=== PATIENT | male | born 1945 | race Caucasian/White ===

== ENCOUNTER 2023-07-01 06:11 | Observation (INO) | payer OTHER, SELFPAY ==
--- NOTE | 2023-07-01 07:08 | RAD REPORT ---
EXAM DESCRIPTION: Jovon Single View07/01/2023 6:49 am CLINICAL HISTORY: Chest pain COMPARISON: none FINDINGS: Mild bilateral interstitial lung opacities presumably chronic. The lungs appear clear of acute infiltrate. The heart is borderline enlarged
[2023-07-01 07:24] LABS: SARS-CoV-2 Antigen Rapid Res Negative (Negative)
--- NOTE | 2023-07-01 07:49 | RAD REPORT ---
EXAM DESCRIPTION: USExtremity Venous Uni Ltd07/01/2023 7:32 am CLINICAL HISTORY: left leg pain COMPARISON: None FINDINGS: Left common femoral, superficial femoral, greater saphenous, popliteal and posterior tibi al veins are compressible and demonstrate augmentation. Doppler demonstrates good flow. Grayscale, color and spectral analysis performed on all vessels IMPRESSION: No evidence of deep venous thrombosis involving the left lower extremity.
--- NOTE | 2023-07-01 07:50 | RAD REPORT ---
EXAM DESCRIPTION: US - Lower Extremity Artery Uni Ltd - 07/01/2023 7:32 am CLINICAL HISTORY: Leg pain COMPARISON: None FINDINGS: The right common femoral, superficial femoral ,popliteal arteries, right posterior tibial and dorsali s pedis arterial waveforms are biphasic and triphasic. No significant stenosis visualized Grayscale, color and spectral analysis performed on all vessels IMPRESSION: No significant abnormality is displayed
[2023-07-01 08:01] LABS: Specific Gravity 1.023 (1.005-1.030); Urine Bacteria None Seen /HPF (<20); Urine Bilirubin NEGATIVE (Negative); Urine Blood Negative (Negative); Urine Clarity Clear (Clear); Urine Color Yellow (Yellow); Urine Glucose NEGATIVE (Negative); Urine Mucus Slight /HPF (None Seen); Urine Protein 1+ (Negative); Urine RBC None Seen /HPF (None Seen); Urine Urobilinogen Normal (Normal); Urine pH 5.5 (5.0-7.0)
[2023-07-01 10:00] LABS: Absolute Lymphocytes (CBC) 0.9 K/uL (0.7-4.9); Hematocrit 42.9 % (39.6-49.0); Lymphocytes % 5.8 % (15.3-44.8); MCV 106.9 fL (80-100); MPV 7.3 fL (7.6-11.3); Platelets 267 thou/uL (152-406); RBC Red Blood Cell Count 4.01 M/uL (4.33-5.43)
[2023-07-01 10:14] LABS: Protime INR 1.69
[2023-07-01 10:17] LABS: Bilirubin Total 0.6 mg/dL (0.2-1.0); Potassium 3.9 mEq/L (3.5-5.1); Protein, Total 7.5 g/dL (6.4-8.2)
[2023-07-01 10:26] LABS: Blood Morphology Comment NOTED (NOT SEEN); Macrocytosis 1+; Platelet Estimate ADEQ; White Blood Cell Scan OK (OK)
--- NOTE | 2023-07-01 10:41 | EDPHYS ---
Physician Documentation [facility] Name: Elías Eason Age: 77 yrs Sex: Male : 1945 Arrival Date: 07/01/2023 Time: 06:11 Bed 17 Private MD: ED Physician Duane Brewster HPI: 07/01 06:45 This 77 yrs old Male presents to ER via EMS with complaints of weakness. rn 06:45 Patient reports feeling generalized weakness and malaise for the last 2 or 3 days. rn States began having a "cold "on his way here, was slow to unload his vehicle when got to [facility], took 2 days to unload, and does not feel any better. Denies any chest pain or shortness of breath. Denies abdominal pain/vomiting/diarrhea.. Onset: The symptoms/episode began/occurred 3 day(s) ago. Severity of symptoms: At their worst the symptoms were moderate in the emergency department the symptoms are unchanged. The patient has not experienced similar symptoms in the past. The patient has not recently seen a physician. Historical: - Allergies: 06:28 Arixtra; nw1 06:28 Zylet; nw1 06:28 Doxycycline; nw1 - Home Meds: 06:28 Eliquis 5 mg oral tablet [Active]; levothyroxine 88 mcg capsule [Active]; vitamin B nw1 complex oral capsule [Active]; Nicotinamide (with chromium) oral [Active]; amoxicillin-pot clavulanate 875-125 mg Oral tablet [Active]; - Immunization history:: Adult Immunizations up to date, Client reports receiving the 2nd dose of the Covid vaccine, Last tetanus immunization: up to date Pneumococcal vaccine is up to date, Flu vaccine is up to date. - Social history:: Smoking status: Patient denies any tobacco usage or history of. Patient uses alcohol, on a daily basis. - Family history:: not pertinent. - Hospitalizations: : No recent hospitalization is reported. 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 ENT: Dry mucous membranes Cardiovascular: Regular rate and rhythm. No pulse deficits. Respiratory: No increased work of breathing, no retractions or nasal flaring. Abdomen/GI: Soft, non-tender MS/ Extremity: No cyanosis. Left lower extremity with chronic venous stasis or lymphedema changes with open wound in her left distal leg. More proximally however there is increased redness with warmth and lymphangitic streaking proximally past the knee and mid thigh. Neuro: Awake and alert, GCS 15, oriented to person, place, time, and situation. Cranial nerves II-XII grossly intact. Motor strength 4/5 in all extremities. Sensory grossly intact 08:06 ECG was reviewed by the Attending Physician. rt Vital Signs: 06:25 BP 154 / 70; Pulse 88; Resp 19; Temp 98.5(O); Pulse Ox 94% on R/A; Weight 70.31 kg; nw1 Height 5 ft. 8 in. ; 06:28 BP 154 / 70; Pulse 88; Temp 98.5(O); Pulse Ox 94% on R/A; Weight 70.31 kg; Height 5 ft. nw1 8 in. ; Pain 0/10; 09:00 BP 150 / 83; Pulse 93; Resp 16; Pulse Ox 95% ; ko1 06:28 Body Mass Index 23.57 (70.31 kg, 172.72 cm) nw1 06:28 Pain Scale: Adult nw1 Frantz Coma Score: 06:38 Eye Response: spontaneous(4). Motor Response: obeys commands(6). Verbal Response: nw1 oriented(5). Total: 15. MDM: 06:19 Patient medically screened. rn 10:41 Differential Diagnosis Cellulitis, DVT,. Data reviewed: vital signs, nurses notes, lab rt test result(s), EKG, radiologic studies. Consideration of Admission/Observation Patient was admitted/placed on observation. Management of patient was discussed with the following: Hospitalist: Agrees to admit. I considered the following discharge prescriptions or medication management in the emergency department Medications were administered in the Emergency Department. See MAR. Test considered but Not performed: CT: Do not suspect necrotizing infection, CT scan not indicated. Counseling: I had a detailed discussion with the patient and/or guardian regarding the historical points, exam findings, and any diagnostic results supporting the discharge/admit diagnosis, lab results, radiology results, the need for further work-up and treatment in the hospital. ED course: Patient did not initially meet SIRS criteria upon arrival, heart rate became above 90 at 9 AM, second SIRS criteria with leukocytosis, at that time, IV antibiotics, fluids were started.. 07/01 06:30 Order name: Blood Culture Adult (2) rn 07/01 06:30 Order name: CBC with Diff; Complete Time: 10:27 07/01 06:30 Order name: CMP; Complete Time: 10: 07/01 06:30 Order name: Lactate w/ 2H reflex if indic.; Complete Time: 07:51 07/01 06:30 Order name: Protime (+inr); Complete Time: 10:27 07/01 06:30 Order name: Ptt, Activated; Complete Time: 10:27 07/01 06:30 Order name: Urinalysis w/ reflexes; Complete Time: 08:04 rn 07/01 06:30 Order name: Flu; Complete Time: 07:51 rn 07/01 06:30 Order name: SARS RAPID; Complete Time: 07:51 07/01 10:07 Order name: Manual Differential; Complete Time: 10:27 [facility] 07/01 10:07 Order name: CBC Smear Scan; Complete Time: 10:27 [facility] 07/01 12:05 Order name: Wound Culture [facility] 07/01 12:10 Order name: Magnesium EDPA 07/01 12:10 Order name: NT PRO-BNP [facility] 07/01 12:10 Order name: Phosphorus EDPA 07/01 12:10 Order name: T4 Free EDPA 07/01 12:10 Order name: Thyroid Stimulating Hormone [facility] 07/01 12:10 Order name: Urinalysis w/ reflexes EDPA 07/01 12:11 Order name: Basic Metabolic Panel [facility] 07/01 12:11 Order name: Basic Metabolic Panel [facility] 07/01 12:11 Order name: Basic Metabolic Panel [facility] 07/01 12:11 Order name: Basic Metabolic Panel [facility] 07/01 12:11 Order name: CBC with Automated Diff [facility] 07/01 12:11 Order name: CBC with Automated Diff EDMS 07/01 12:11 Order name: CBC with Automated Diff EDMS 07/01 12:11 Order name: CBC with Automated Diff EDMS 07/01 12:12 Order name: Hemoglobin A1c EDMS 07/01 12:12 Order name: Lipid Profile EDMS 07/01 06:30 Order name: Chest Single View XRAY; Complete Time: 07:51 rn 07/01 06:30 Order name: Extremity Venous Uni Ltd US; Complete Time: 07:51 rn 07/01 06:30 Order name: Lower Extremity Artery Uni Ltd US; Complete Time: 07:51 rn 07/01 12:15 Order name: Lower Extremity Wo; Complete Time: 16:35 EDMS 07/01 06:30 Order name: EKG; Complete Time: 06:31 rn 07/01 12:10 Order name: [facility] Cons EDPA 07/01 06:30 Order name: Accucheck; Complete Time: 09:55 rn 07/01 06:30 Order name: Cardiac monitoring; Complete Time: 06:41 rn 07/01 06:30 Order name: EKG - Nurse/Tech; Complete Time: 08:56 rn 07/01 06:30 Order name: IV Saline Lock - Large Bore; Complete Time: 07:13 rn 07/01 06:30 Order name: Labs collected and sent; Complete Time: 07:13 rn 07/01 06:30 Order name: O2 Per Protocol; Complete Time: 06:41 rn 07/01 06:30 Order name: O2 Sat Monitoring; Complete Time: 06:41 rn 07/01 06:30 Order name: Vital Signs; Complete Time: 06:41 rn 07/01 07:14 Order name: Labs - recollect needed: recollect green,blue and lavender top; Complete bd Time: 09:55 EC:06 Rate is 92 beats/min. Rhythm is regular, Normal Sinus Rhythm with No ectopy. QRS [place] rt is Normal. AL interval is normal. QRS interval is normal. QT interval is normal. Clinical impression: NSR w/ Non-specific ST/T Changes. Administered Medications: 11:22 Drug: Cefepime IVPB 2 grams IVPB at 200 ml/hr once over 30 mins; (mix in NS 100 mL) ko1 Route: IVPB; Rate: 200 ml/hr; Infused Over: 30 mins; Site: right forearm; 11:22 Drug: NS 0.9% IV 1000 ml IV at 1 bolus Per protocol; 1000 mL bolus Route: IV; Rate: 1 ko1 bolus; Site: right forearm; 11:55 Drug: Triamcinolone Topical Cream (0.5 %) 1 application Topical once Route: Topical; ko1 Site: affected area; 11:55 Drug: vancoMYCIN IVPB 1 grams IVPB once over 2 hrs Route: IVPB; Infused Over: 2 hrs; ko1 Site: right forearm; Disposition Summary: 07/01/23 10:41 Hospitalization Ordered Notes: Hospitalization Status: Inpatient Admission rt Provider: Yonas Castañeda rt Condition: Stable rt Problem: an ongoing problem rt Symptoms: are unchanged rt Bed/Room Type: Standard rt Location: Telemetry/MedSurg (Inpatient)(07/01/23 16:45) bd Room Assignment: [facility](07/01/23 16:45) bd Diagnosis - Cellulitis left lower extremity rt - Sepsis rt Forms: - Medication Reconciliation Form rt - SBAR form rt - Leadership Thank You Letter rt Signatures: Dispatcher [employer] EDConcepcion Monterroso bd Geronimo Storey MD MD rn Bradberry, Kelly RN RN kb3 Dipti Dean, NATALIE RN ko1 Duane Brewster MD MD rt Karla López RN RN nw1 Corrections: (The following items were deleted from the chart) 13:42 10:41 Telemetry/MedSurg (Inpatient) rt kb3 13:42 10:41 rt kb3 16:45 13:42 [facility] ER HOLD kb3 bd 16:45 13:42 ERHOLD- kb3 bd
--- NOTE | 2023-07-01 10:41 | ER ---
Nurse's Notes [facility] Name: Elías Eason Age: 77 yrs Sex: Male : 1945 Arrival Date: 07/01/2023 Time: 06:11 Bed 17 Private MD: Diagnosis: Cellulitis left lower extremity;Sepsis Presentation: 07/01 06:25 Chief complaint: Patient states: Generalized weakness and fatigue. Pt states being nw1 treated by wound care clinic for LLE in [place] three times a day. Pt states skin cancer on LLE. Coronavirus screen: Vaccine status: Patient reports receiving the 2nd dose of the covid vaccine. Client denies travel out of the [place] in the last 14 days. At this time, the client does not indicate any symptoms associated with coronavirus-19. Ebola Screen: Patient negative for fever greater than or equal to 101.5 degrees Fahrenheit, and additional compatible Ebola Virus Disease symptoms Patient denies exposure to infectious person. Patient denies travel to an Ebola-affected area in the 21 days before illness onset. No symptoms or risks identified at this time. Initial Sepsis Screen: Does the patient meet any 2 criteria? No. Patient's initial sepsis screen is negative. Does the patient have a suspected source of infection? Yes: Skin breakdown/wound. Risk Assessment: Do you want to hurt yourself or someone else? Patient reports no desire to harm self or others. Onset of symptoms was June 28, 2023. 06:25 Method Of Arrival: EMS nw1 06:25 Acuity: HARRISON 2 nw1 Triage Assessment: 06:28 General: Appears in no apparent distress. comfortable, well groomed, well developed, nw1 well nourished, Behavior is calm, cooperative, appropriate for age. Pain: Denies pain. EENT: No deficits noted. No signs and/or symptoms were reported regarding the EENT system. Neuro: Level of Consciousness is awake, alert, obeys commands, Oriented to person, place, time, situation, Appropriate for age. Cardiovascular: Reports None. Respiratory: No deficits noted. Airway is patent Trachea midline Respiratory effort is even, unlabored, Respiratory pattern is regular, symmetrical. GI: No deficits noted. No signs and/or symptoms were reported involving the gastrointestinal system. Abdomen is non-distended, Bowel sounds present X 4 quads. Abd is soft and non tender X 4 quads. : No deficits noted. No signs and/or symptoms were reported regarding the genitourinary system. Derm: Skin LLE wounds/treated by wound care in [place], [place]. Musculoskeletal: Reports weakness in generalized. Historical: - Allergies: 06:28 Arixtra; nw1 06:28 Zylet; nw1 06:28 Doxycycline; nw1 - Home Meds: :28 Eliquis 5 mg oral tablet [Active]; levothyroxine 88 mcg capsule [Active]; vitamin B nw1 complex oral capsule [Active]; Nicotinamide (with chromium) oral [Active]; amoxicillin-pot clavulanate 875-125 mg Oral tablet [Active]; - Immunization history:: Adult Immunizations up to date, Client reports receiving the 2nd dose of the Covid vaccine, Last tetanus immunization: up to date Pneumococcal vaccine is up to date, Flu vaccine is up to date. - Social history:: Smoking status: Patient denies any tobacco usage or history of. Patient uses alcohol, on a daily basis. - Family history:: not pertinent. - Hospitalizations: : No recent hospitalization is reported. Screenin:38 [facility] ED Fall Risk Assessment (Adult) History of falling in the last 3 months, nw1 including since admission Yes- single mechanical fall (1 pt) Confusion or Disorientation No (0 pts) Intoxicated or Sedated No (0 pts) Impaired Gait Yes (1 pt) Mobility Assist Device Used Yes (1 pt) Altered Elimination No (0 pt) Score/Fall Risk Level 3 or more points = High Risk Oriented to surroundings, Maintained a safe environment, Educated pt \T\ family on fall prevention, incl call for assistance when getting out of bed, Assessed \T\ reinforced patient's understanding of fall precautions, Provided non-skid footwear, Hourly rounding (assess needs \T\ fall precautionary measures) done, Used ambulatory aids as needed (educated on \T\ assisted with). Abuse screen: Denies threats or abuse. Denies injuries from another. Nutritional screening: No deficits noted. Tuberculosis screening: No symptoms or risk factors identified. Assessment: 06:38 Reassessment: See triage assessment. nw1 08:45 Reassessment: called lab for redraw, offgoing nurse had sent blood twice. ko1 17:15 Reassessment: attempted to call report, left message on phone and attempted to call [facility] nurses station at 1224 and no answer. Vital Signs: 06:25 BP 154 / 70; Pulse 88; Resp 19; Temp 98.5(O); Pulse Ox 94% on R/A; Weight 70.31 kg; nw1 Height 5 ft. 8 in. ; 06:28 BP 154 / 70; Pulse 88; Temp 98.5(O); Pulse Ox 94% on R/A; Weight 70.31 kg; Height 5 ft. nw1 8 in. ; Pain 0/10; 09:00 BP 150 / 83; Pulse 93; Resp 16; Pulse Ox 95% ; ko1 06:28 Body Mass Index 23.57 (70.31 kg, 172.72 cm) nw1 06:28 Pain Scale: Adult nw1 Gallup Coma Score: 06:38 Eye Response: spontaneous(4). Motor Response: obeys commands(6). Verbal Response: nw1 oriented(5). Total: 15. ED Course: 06:15 Patient arrived in ED. la4 06:19 Geronimo Storey MD is Attending Physician. rn 06:24 Karla López, NATALIE is Primary Nurse. nw1 06:28 Triage completed. nw1 06:28 Arm band placed on right wrist. Labs ordered per protocol. Drawn by ED staff. noted 2 nw1 wounds on LLE with band-aid. Noted redness to extremity as well as warm to touch. 06:38 Patient has correct armband on for positive identification. Bed in low position. Call nw1 light in reach. Side rails up X2. Adult w/ patient. Provided Education on: POC. Client placed on continuous cardiac and pulse oximetry monitoring. NIBP monitoring applied. groundwater monitoring technician on. Pulse ox on. NIBP on. Door closed. Noise minimized. Warm blanket given. Pillow given. 06:38 No provider procedures requiring assistance completed. Inserted saline lock: 20 gauge nw1 in right forearm, using aseptic technique. Blood collected. Missed attempt(s): 20 gauge in right forearm. Bleeding controlled, band aid applied, catheter tip intact. 06:50 Chest Single View XRAY In Process Unspecified. EDMS 06:58 Attending Physician role handed off by Geronimo Storey MD rt 06:58 Duane Brewster MD is Attending Physician. rt 07:34 Extremity Venous Uni Ltd US In Process Unspecified. EDMS 07:34 Lower Extremity Artery Uni Ltd US In Process Unspecified. EDMS 10:39 Yonas Castañeda MD is Hospitalizing Provider. rt 13:49 Primary Nurse role handed off by Karla López, NATALIE ko1 13:49 Dipti Dean, RN is Primary Nurse. ko1 16:58 Patient admitted, IV remains in place. ko1 Administered Medications: 11:22 Drug: Cefepime IVPB 2 grams IVPB at 200 ml/hr once over 30 mins; (mix in NS 100 mL) ko1 Route: IVPB; Rate: 200 ml/hr; Infused Over: 30 mins; Site: right forearm; 11:22 Drug: NS 0.9% IV 1000 ml IV at 1 bolus Per protocol; 1000 mL bolus Route: IV; Rate: 1 ko1 bolus; Site: right forearm; 11:55 Drug: Triamcinolone Topical Cream (0.5 %) 1 application Topical once Route: Topical; ko1 Site: affected area; 11:55 Drug: vancoMYCIN IVPB 1 grams IVPB once over 2 hrs Route: IVPB; Infused Over: 2 hrs; ko1 Site: right forearm; Medication: 06:38 VIS not applicable for this client. nw1 Outcome: 10:41 Decision to Hospitalize by Provider. rt 16:58 Admitted to Tele accompanied by tech, via wheelchair, room 210, ko1 16:58 Condition: stable 16:58 Instructed on the need for admit, 17:52 Patient left the ED. ko1 Signatures: Dispatcher [employer] EDMS Geronimo Storey MD MD rn Oliver, Kathy RN RN ko1 Duane Brewster MD MD rt Denzel Marx RN RN la4 Karla López, RN RN nw1
[2023-07-01] MEDS ORDERED: VANCOMYCIN 1 GM/VIAL ONE (11:15)
[2023-07-01] MEDS ORDERED: CEFEPIME 2 GM VIAL ONE (11:15)
[2023-07-01] MEDS ORDERED: NA CHLORIDE 0.9% 250 ML ONE (11:16)
[2023-07-01] MEDS ORDERED: NA CHLORIDE 0.9% 1,000 ML ONE (11:17)
[2023-07-01] MEDS ORDERED: NA CHLORIDE 0.9% 100 ML ONE (11:17)
[2023-07-01] MEDS ORDERED: TRIAMCINOLONE 0.1% CREAM 15GM TOP ONE (11:30)
[2023-07-01] MEDS ORDERED: ACETAMINOPHEN 325 MG TABLET PO PRN (12:04)
[2023-07-01] MEDS ORDERED: ONDANSETRON 4 MG/2 ML VIAL IV PRN (12:08)
--- NOTE | 2023-07-01 12:13 | P.HP ---
Certification for Inpatient Patient admitted to: Observation With expected LOS: <2 Midnights Patient will require the following post-hospital care: None Practitioner: I am a practitioner with admitting privileges, knowledge of patient current condition, hospital course, and medical plan of care. Services: Services provided to patient in accordance with Admission requirements found in Title 42 Section 412.3 of the Code of Federal Regulations <Adam Almendarez E - Last Filed: 07/01/23 14:43> Patient History Date of Service: 07/01/23 Reason for admission: LLE wound\redness, fatigue weakness and malaise History of Present Illness: Patient is a 77-year-old male with a past medical history significant for DVT, left lower extremity wound who presents with complaint of generalized fatigue, malaise and weakness that has been ongoing for the past 3 days. 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 Patient reported that he has been having wound care sessions in [place]. Patient also reports chronic left lower extremity swelling\redness but reported that symptoms became worse in the last 4 days. Patient also reports bilateral lower extremity pain worse on the left side. Patient rated pain as 10/10 in severity and described pain as aching in quality. Patient reported that he has not been able to walk due to persistent symptoms. Patient reported associated signs and symptoms of subjective fever. Patient denies any other signs and symptoms. Symptoms are aggravated or relieved by nothing. Patient decided to present to the hospital due to worsening symptoms. - Past Medical/Surgical History Has patient received pneumonia vaccine in the past: No Diabetic: No -: DVT Past Surgical History: Reviewed- Non-Contributory - Family History Family History: Reviewed- Non-Contributory - Social History Smoking Status: Never smoker Alcohol use: Yes CD- Drugs: No Caffeine use: Yes Place of Residence: Home <KeyurfelicitaYasircatia Ferrer - Last Filed: 07/01/23 14:43> Date of Service: 07/01/23 <Yonas Castañeda - Last Filed: 07/01/23 22:05> Allergies doxycycline Allergy (Verified 07/01/23 11:24) UNK fondaparinux [From Arixtra] Allergy (Verified 07/01/23 11:23) UNK loteprednol [From Zylet] Allergy (Verified 07/01/23 11:23) UNK tobramycin [From Zylet] Allergy (Verified 07/01/23 11:23) UNK Home Medications: Acetaminophen [Tylenol Extra Strength] 500 mg PO Q6HP PRN 07/01/23 Apixaban [Eliquis] 5 mg PO BID 07/01/23 Hypochlorous Acid/Sodium Chlor [Avenova Lid-Lash [place]] 1 spray EACH EYE BID 07/01/23 Levothyroxine [Synthroid*] 0.088 mcg PO [id number] 07/01/23 Lmefolate/B3/Wander/Zn/Zoë/Chrom [Nicotinamide Tablet] 500 mcg PO DAILY 07/01/23 Triamcinolone Acetonide 1 appl TD BID 07/01/23 Vitamin B Complex [Vitamin B Complex*] 1 cap PO DAILY 07/01/23 Review of Systems General: Fever, Weakness, Malaise, Other (Fatigue) Eyes: Unremarkable ENT: Unremarkable Respiratory: Unremarkable Cardiovascular: Unremarkable Gastrointestinal: Unremarkable Genitourinary: Unremarkable Musculoskeletal: Leg Pain Integumentary: Other (LLE wound\redness ) Neurological: Weakness Lymphatics: Unremarkable <Adam Almendarez - Last Filed: 07/01/23 14:43> Physical Examination - Physical Exam General: Alert, In no apparent distress, Oriented x3, Cooperative HEENT: Atraumatic, PERRLA, Mucous membr. moist/pink, EOMI, Sclerae nonicteric Neck: Supple, 2+ carotid pulse no bruit, No LAD, Without JVD or thyroid abnormality Respiratory: Clear to auscultation bilaterally, Normal air movement Cardiovascular: Regular rate/rhythm, Normal S1 S2, Edema Capillary refill: <2 Seconds Gastrointestinal: Normal bowel sounds, Non-distended, No tenderness Musculoskeletal: No clubbing, Swelling, Erythema, Tenderness Integumentary: No rashes, Tenderness/swelling, Erythema Neurological: Normal speech, Normal tone, Normal affect Lymphatics: No axilla or inguinal lymphadenopathy - Studies Laboratory Data (last 24 hrs) 07/01/23 07/01/23 07/01/23 09:50 09:50 09:50 WBC 15.40 H Hgb 14.7 Hct 42.9 Plt Count 267 PT 18.3 H INR 1.69 APTT 35.5 Sodium 137 Potassium 3.9 BUN 24 H Creatinine 1.02 Glucose 144 H Total Bilirubin 0.6 AST 10 L ALT 17 Alkaline Phosphatase 74 Microbiology Data (last 24 hrs): 07/01/23 06:54 Nasopharnyx Influenza Type A Antigen Screen - Final 07/01/23 06:54 Nasopharnyx Influenza Type B Antigen Screen - Final <Adam Almendarez E - Last Filed: 07/01/23 14:43> - Studies Laboratory Data (last 24 hrs) 07/01/23 07/01/23 07/01/23 09:50 09:50 09:50 WBC 15.40 H Hgb 14.7 Hct 42.9 Plt Count 267 PT 18.3 H INR 1.69 APTT 35.5 Sodium 137 Potassium 3.9 BUN 24 H Creatinine 1.02 Glucose 144 H Total Bilirubin 0.6 AST 10 L ALT 17 Alkaline Phosphatase 74 Microbiology Data (last 24 hrs): 07/01/23 06:54 Nasopharnyx Influenza Type A Antigen Screen - Final 07/01/23 06:54 Nasopharnyx Influenza Type B Antigen Screen - Final <JagruticarinYonas Bowen - Last Filed: 07/01/23 22:05> Assessment and Plan - Plan --Left lower extremity cellulitis. Blood cultures pending. Continue antibiotics. Infectious disease MD consulted. Will await further recommendations from infectious disease MD. Continue supportive care. -- Left lower extremity wound. Patient follows up with wound care in [facility]. MRI left lower extremity to rule out osteomyelitis. Wound cultures pending. Continue antibiotics. Wound care consult initiated. Infectious disease MD on board. --Acute pain. Arterial and venous Doppler of left lower extremity negative for any acute finding. Continue current pain medication regimen. --History of DVT. Patient reports that he is on Eliquis at home. Continue Eliquis. --Leukocytosis. Blood cultures pending. Continue antibiotics. --CKD 2. Baseline functions unknown. Will continue to monitor renal functions. --Generalized weakness. PT eval and treat. Continue supportive care. --DVT prophylaxis with Eliquis. Discharge Plan: Home Plan to discharge in: 48 Hours - Advance Directives Does patient have a Living Will: No Does patient have a Durable POA for Healthcare: No - Code Status/Comfort Care Code Status Assessed: Yes Physician Review: Patient Assessed, Agree with Above Assessment and Plan Critical Care: No <Adam Almendarez - Last Filed: 07/01/23 14:43> - Plan Pt seen and examined. I agree with the note by the REPRODUCTIVE SURGEON. Pt is a 77yo male with past medical history of SCC of left leg and DVT who presents with LLE cellulitis. Pt reports that the wound initially started after he had excision of SCC from the left leg. The cellulitis progressively worsened over the past 4 days and pt decided to come to the ER for evaluation. He endorsed compliance with wound care on outpt in [place], [place]. He exerted himself while carrying luggage up a flight of stairs in the [place]. On admission, lab studies show WBC 15.4, Cr 3.9, Cr 1.02, lactate 1.5. At bedside, pt is in NAD. A/P: sepsis 2/2 LLE cellulitis: Will continue iv vanc and cefepime and follow up blood cx. Consulted ID. Will continue wound care. lactate is 1.5. SOB with exertion: BNP is 1245. Will follow up Echo. Acute LLE pain: Doppler ultrasound is negative for DVT. Continue prn pain med. Will continue home med for other chronic medical problems. <Yonas Castañeda - Last Filed: 07/01/23 22:05>
[2023-07-01 14:17] VITALS: BMI 23.6
[2023-07-01] MEDS: HYDROCODONE/APAP 10/325 TAB PO PRN ×2 (15:35→23:38)
[2023-07-01] MEDS ORDERED: HYDROCODONE/APAP 10/325 TAB ONE (15:37)
--- NOTE | 2023-07-01 15:54 | RAD REPORT ---
EXAM DESCRIPTION: MRI - Lower Extremity Wo - 07/01/2023 1:42 pm CLINICAL HISTORY: R O Osteomyelitis COMPARISON: No comparisons TECHNIQUE: Multiplanar multisequence MRI of the left lower extremity, obtained without IV contrast . FINDINGS: No marrow signal abnormality, evidence of an acute fracture, or other suspicious osseous f ocal finding to suggest ongoing osteomyelitis. Small triangular focus of signal abnormality along the medial aspect of the lower leg, which may be a long a peripheral margin of the gastrocnemius muscle, this demonstrates T1 hyperintense signal, T2 hy pointense signal, with adjacent T2 hyperintensity anteriorly that extends into the overlying subcutan eous tissue. This may relate to a small component of hemorrhage or an ill-defined collection. This me asures 9 mm in greatest AP extent, and approximately 3 mm in greatest thickness. See series 95, image s 19 and 18 respectively. Overlying mild skin irregularity, just anterior to the MRI marker, may relate to a skin wound. Mild s ubcutaneous edema and skin irregularity underlying the skin marker along the antro lateral aspect of the lower leg, without signal abnormalities in the deeper soft tissues. IMPRESSION: No MRI findings to suggest ongoing osteomyelitis. Signal abnormalities along the medial aspect of the right lower leg, may relate to a linear small com ponent of hemorrhage or ill-defined collection. Otherwise, there is subcutaneous edema underlying the medial and lateral lower leg wounds, which may relate to cellulitis, without other suspicious findin gs.
[2023-07-01] MEDS ORDERED: ENOXAPARIN 40 MG/0.4 ML SQ SCH (17:00)
[2023-07-01 17:55] LABS: Magnesium 1.9 mg/dL (1.6-2.4); Phosphorus 2.3 mg/dL (2.5-4.9); Thyroid Stimulating Hormone 1.08 uIU/mL (0.358-3.740)
[2023-07-01] MEDS: CEFEPIME 1 GM in NA CHLORIDE 0.9% 100 ML IV SCH (20:28)
[2023-07-01] MEDS: APIXABAN 5 MG TABLET PO SCH (20:49)
[2023-07-01] MEDS ORDERED: VANCOMYCIN 1 GM in NA CHLORIDE 0.9% 250 ML IVPB SCH (22:04)
[2023-07-02] MEDS: CEFEPIME 1 GM in NA CHLORIDE 0.9% 100 ML IV SCH ×3 (03:31→19:48)
[2023-07-02] MEDS: HYDROCODONE/APAP 10/325 TAB PO PRN ×3 (06:00→19:48)
[2023-07-02 06:42] LABS: Absolute Lymphocytes (CBC) 1.6 K/uL (0.7-4.9); Lymphocytes % 11.8 % (15.3-44.8); MCV 107.8 fL (80-100); MPV 7.7 fL (7.6-11.3); Platelets 237 thou/uL (152-406)
[2023-07-02 06:54] LABS: Potassium 4.2 mEq/L (3.5-5.1)
[2023-07-02] MEDS: VANCOMYCIN 1.25 GM in NA CHLORIDE 0.9% 250 ML IVPB SCH (08:32)
[2023-07-02] MEDS: APIXABAN 5 MG TABLET PO SCH ×2 (08:45→21:00)
--- NOTE | 2023-07-02 08:59 | P.CNS ---
Date of Consult: 07/02/23 Reason for Consult: LLE cellulitis Requesting Physician: Yonas Castañeda Chief Complaint: LLE wound\\redness, fatigue weakness and malaise History of Present Illness: Patient is a 77 yo male with a past medical history of DVT left leg x 2 on Eliquis and squamous cell carcinoma left lower extremity who presented to the ED with complaints of exhaustion and back pain. Patient reports he had a procedure on left anterior tibia for the squamous cell carcinoma in March 2023. He also reports a wound to posterior lower leg due to hiking boot friction since 2022. He has been seeing a [facility] wound care clinic in [place], [place]. Patient was admitted for Cellulitis of left lower extremity. Venous doppler negative for DVT of left lower extremity. He was started on empiric antibiotics, wound and blood cultures ordered. Infectious disease was consulted. Allergies doxycycline Allergy (Verified 07/01/23 11:24) UNK fondaparinux [From Arixtra] Allergy (Verified 07/01/23 11:23) UNK loteprednol [From Zylet] Allergy (Verified 07/01/23 11:23) UNK tobramycin [From Zylet] Allergy (Verified 07/01/23 11:23) UNK Home Medications: Acetaminophen [Tylenol Extra Strength] 500 mg PO Q6HP PRN 07/01/23 Apixaban [Eliquis] 5 mg PO BID 07/01/23 Hypochlorous Acid/Sodium Chlor [Avenova Lid-Lash [place]] 1 spray EACH EYE BID 07/01/23 Levothyroxine [Synthroid*] 0.088 mcg PO [id number] 07/01/23 Lmefolate/B3/Wander/Zn/Zoë/Chrom [Nicotinamide Tablet] 500 mcg PO DAILY 07/01/23 Triamcinolone Acetonide 1 appl TD BID 07/01/23 Vitamin B Complex [Vitamin B Complex*] 1 cap PO DAILY 07/01/23 - Past Medical/Surgical History Diabetic: No -: DVT -: Hernia sx - Social History Alcohol use: No CD- Drugs: No Caffeine use: No Place of Residence: Home Review of Systems 10-point ROS is otherwise unremarkable General: Weakness Musculoskeletal: Back Pain, Foot Pain (left) Integumentary: Lesions (LLE x2) Physical Examination Temp Pulse Resp BP Pulse Ox 98.9 F 71 16 146/73 H 96 07/02/23 04:00 07/02/23 04:00 07/02/23 07:00 07/02/23 04:00 07/02/23 07:00 General: Alert, In no apparent distress, Oriented x3 HEENT: Atraumatic, Normocephalic, Mucous membr. moist/pink Neck: Supple Respiratory: Clear to auscultation bilaterally, Normal air movement Cardiovascular: No edema, Abnormal pulses (weak DP and PT pulses bilaterally) Gastrointestinal: Normal bowel sounds, Soft and benign, Non-distended Integumentary: Tenderness/swelling (LLE), Erythema (LLE), Venous stasis ulcer (LLE) Neurological: Normal speech, Normal tone, Normal affect Laboratory Data - Reviewed Microbiology Data - Reviewed Imagings Data: - MRI LLE 07/01: "No MRI findings to suggest ongoing osteomyelitis. Signal abnormalities along the medial aspect of the right lower leg, may relate to a linear small component of hemorrhage or ill-defined collection. Otherwise, there is subcutaneous edema underlying the medial and lateral lower leg wounds, which may relate to cellulitis, without other suspicious findings." - Venous ultrasound 07/01: " No evidence of deep venous thrombosis involving the left lower extremity." - Arterial ultrasound 07/01: "No significant abnormality is displayed" - XR Chest 07/01: " Mild bilateral interstitial lung opacities presumably chronic. The lungs appear clear of acute infiltrate. The heart is borderline enlarged" Conclusions/Impression: Problem List Cellulitis of Left Lower Extremity History squamous cell carcinoma left lower extremity History of DVT left lower extremity x 2 (~2008) Cellulitis of Left Lower Extremity - Patient reportedly had operation on LLE for squamous cell carcinoma in March 2023, wound from procedure has been non-healing. He also reports hiking at [employer] in 2022 during which his hiking boots rubbed against the posterior foot causing a wound, which has also been non-healing since then. Patient states he has been seeing a [facility] and wound care clinic since March in [place], [place]. - MRI LLE 07/01: "No MRI findings to suggest ongoing osteomyelitis. Signal abnormalities along the medial aspect of the right lower leg, may relate to a linear small component of hemorrhage or ill-defined collection. Otherwise, there is subcutaneous edema underlying the medial and lateral lower leg wounds, which may relate to cellulitis, without other suspicious findings." - Venous ultrasound 07/01: " No evidence of deep venous thrombosis involving the left lower extremity." - blood cultures 07/01: pending - Wound culture 07/01: pending - Currently on Cefepime and Vancomycin (started 07/01) - Leukocytosis (WBC 13.5) with left shift - Afebrile - Arterial ultrasound 07/01: "No significant abnormality is displayed" - XR Chest 07/01: " Mild bilateral interstitial lung opacities presumably chronic. The lungs appear clear of acute infiltrate. The heart is borderline enlarged" Recommendations - Continue Cefepime and Vancomycin for now - Pending wound culture results. Will adjust antibiotics as appropriate. - Nutritional supplementation - consider rinsing both wounds with vashe, pat dry, then apply silver alginate dressing daily. - Monitor WBC and fever trends. Case discussed with Demar Vickers
[2023-07-02] MEDS: MEDIHONEY 44 ML TOPICAL TUBE TOP SCH (12:00)
--- NOTE | 2023-07-02 23:20 | P.PN ---
Subjective Date of Service: 07/02/23 Chief Complaint: LLE wound\redness, fatigue weakness and malaise Subjective: Improving Patient seen with spouse at bedside. Patient currently denies any signs and symptoms of distress. <Adam Almendarez - Last Filed: 07/03/23 03:54> Date of Service: 07/04/23 <Yonas Castañeda - Last Filed: 07/04/23 16:02> Review of Systems General: Other Eyes: Unremarkable ENT: Unremarkable Respiratory: Unremarkable Cardiovascular: Unremarkable Gastrointestinal: Unremarkable Genitourinary: Unremarkable Musculoskeletal: Leg Pain Integumentary: Other (LLE wound\redness ) Neurological: Unremarkable Lymphatics: Unremarkable <Adam Almendarez - Last Filed: 07/03/23 03:54> Physical Examination - Vital Signs Temperature: 98.5 F Blood Pressure: 116/68 Pulse: 73 Respirations: 18 Pulse Ox (%): 97 - Physical Exam General: Alert, In no apparent distress, Oriented x3, Cooperative HEENT: Atraumatic, PERRLA, EOMI Neck: Supple, JVD not distended Respiratory: Clear to auscultation bilaterally, Normal air movement Cardiovascular: Regular rate/rhythm, Normal S1 S2, Edema Capillary refill: <2 Seconds Gastrointestinal: Normal bowel sounds, Non-distended, No tenderness Musculoskeletal: No clubbing, No tenderness Integumentary: No rashes, Tenderness/swelling Neurological: Normal speech, Normal tone, Normal affect Lymphatics: No axilla or inguinal lymphadenopathy - Studies Microbiology Data (last 24 hrs): 07/01/23 06:50 Blood - Blood Anaerobic Blood Culture - Final 07/01/23 06:56 Blood - Blood Anaerobic Blood Culture - Final <Adam Almendarez - Last Filed: 07/03/23 03:54> Assessment And Plan - Plan Interval history. 07/02/2023. Patient seen at bedside. Left lower extremity wound being assessed by wound care team. Infectious disease MD on board. Will continue antibiotics per Infectious MD recommendations. Patient currently denies any signs and symptoms of distress. Continue supportive care. --Left lower extremity cellulitis. Blood cultures pending. Continue antibiotics. Infectious disease MD consulted. Will await further recommendations from infectious disease MD. Continue supportive care. -- Left lower extremity wound. Patient follows up with wound care in [facility]. MRI left lower extremity to rule out osteomyelitis. Wound cultures pending. Continue antibiotics. Wound care consult initiated. Infectious disease MD on board. --Acute pain. Arterial and venous Doppler of left lower extremity negative for any acute finding. Continue current pain medication regimen. --History of DVT. Patient reports that he is on Eliquis at home. Continue Eliquis. --Leukocytosis. Blood cultures pending. Continue antibiotics. --CKD 2. Baseline functions unknown. Will continue to monitor renal functions. --Generalized weakness. PT eval and treat. Continue supportive care. --DVT prophylaxis with Eliquis. Discharge Plan: Home Plan to discharge in: Greater than 2 days - Code Status/Comfort Care Code Status Assessed: Yes Physician Review: Patient Assessed, Agree with Above Assessment and Plan Critical Care: No <Adam Almendarez E - Last Filed: 07/03/23 03:54> - Plan Pt seen and examined. I agree with the note by the VOLUNTEER SERVICES ASSISTANT. Continue iv vanc and cefepime for LLE celluitis. Consulted ID. Will follow up wound cx. <Yonas Castañeda - Last Filed: 07/04/23 16:02>
[2023-07-03] MEDS: CEFEPIME 1 GM in NA CHLORIDE 0.9% 100 ML IV SCH ×2 (03:27→12:08)
[2023-07-03] MEDS: HYDROCODONE/APAP 10/325 TAB PO PRN ×2 (04:37→12:08)
[2023-07-03 06:38] LABS: Absolute Lymphocytes (CBC) 1.6 K/uL (0.7-4.9); Hematocrit 40.2 % (39.6-49.0); Lymphocytes % 15.6 % (15.3-44.8); MPV 7.5 fL (7.6-11.3); Platelets 245 thou/uL (152-406); RBC Red Blood Cell Count 3.72 M/uL (4.33-5.43)
[2023-07-03 06:43] LABS: Potassium 4.2 mEq/L (3.5-5.1)
--- NOTE | 2023-07-03 06:48 | ECHO ---
HEIGHT: 5 ft 8 in WEIGHT: 155 lb 0 oz DATE OF STUDY: 07/02/[address]: Yonas Castañeda MD 2-DIMENSIONAL: YES M.MODE: YES DOPPLER: YES COLOR FLOW: YES TDS: PORTABLE: DEFINITY: BUBBLE STUDY: DIAGNOSIS: SHORTNESS OF BREATH CARDIAC HISTORY: CATHERIZATION: SURGERY: PROSTHETIC VALVE: PACEMAKER: MEASUREMENTS (cm) DIASTOLIC (NORMALS) SYSTOLIC (NORMALS) IVSd 1.1 (0.6-1.2) LA Diam 3.6 (1.9-4.0) LVEF 51% LVIDd 3.5 (3.5-5.7) LVIDs 2.6 (2.0-3.5) %FS 25% LVPWd 1.3 (0.6-1.2) Ao Diam 3.1 (2.0-3.7) 2 DIMENSIONAL ASSESSMENT: RIGHT ATRIUM: NORMAL LEFT ATRIUM: NORMAL RIGHT VENTRICLE: NORMAL LEFT VENTRICLE: NORMAL TRICUSPID VALVE: MILD TRICUSPID REGURGITATION MITRAL VALVE: MILD MITRAL ANNULAR CALCIFICATION PULMONIC VALVE: NORMAL AORTIC VALVE: CALCIFIED AORTIC VALVE, NO AORTIC STENOSIS PERICARDIAL EFFUSION: NONE AORTIC ROOT: NORMAL LEFT VENTRICULAR WALL MOTION: NORMAL DOPPLER/COLOR FLOW: SEE BELOW COMMENTS: 1. NORMAL LEFT VENTRICULAR EJECTION FRACTION 55-60% WITH NORMAL WALL MOTION 2. GRADE I DIASTOLIC DYSFUNCTION 3. MILD TRICUSPID REGURGITATION 4. MILD PULMONARY HYPERTENSION WITH RIGHT VENTRICULAR SYSTOLIC PRESSURE OF 45-50 mmHg TECHNOLOGIST: ASHISH PASTOR
[2023-07-03] MEDS ORDERED: ENSURE HIGH PROTEIN 237 ML CAN PO SCH (08:00)
[2023-07-03] MEDS: APIXABAN 5 MG TABLET PO SCH (09:00)
[2023-07-03] MEDS: VANCOMYCIN 1.25 GM in NA CHLORIDE 0.9% 250 ML IVPB SCH (09:12)
[2023-07-03] MEDS: MEDIHONEY 44 ML TOPICAL TUBE TOP SCH (09:14)
--- NOTE | 2023-07-03 09:26 | P.PN ---
Date of Service: 07/03/23 Chief Complaint: LLE wound\\redness, fatigue weakness and malaise Subjective: Patient seen and examined at bedside. In no apparent distress. Reports some improvement in left lower leg pain. Denies any new or worsening complaints at this time. No acute events overnight. Physical Examination Temp Pulse Resp BP Pulse Ox 98.6 F 79 18 145/86 H 99 07/03/23 08:00 07/03/23 08:00 07/03/23 08:00 07/03/23 08:00 07/03/23 08:00 General: Alert, In no apparent distress, Oriented x3 HEENT: Atraumatic, Normocephalic, Mucous membr. moist/pink. Respiratory: Clear to auscultation bilaterally, Normal air movement Cardiovascular: Regular rate/rhythm. weak DP and PT pulses bilaterally. LLE edema Gastrointestinal: Normal bowel sounds, Soft and benign, Non-distended Integumentary: Erythema and edema LLE. LLE wounds x 2, mid-anterior hunter and posterior lower leg, dressing c/d/i. Neurological: Normal speech, Normal tone, Normal affect Laboratory Data - Reviewed Microbiology Data - Reviewed Imagings Data: - MRI LLE 07/01: "No MRI findings to suggest ongoing osteomyelitis. Signal abnormalities along the medial aspect of the right lower leg, may relate to a linear small component of hemorrhage or ill-defined collection. Otherwise, there is subcutaneous edema underlying the medial and lateral lower leg wounds, which may relate to cellulitis, without other suspicious findings." - Venous ultrasound 07/01: " No evidence of deep venous thrombosis involving the left lower extremity." - Arterial ultrasound 07/01: "No significant abnormality is displayed" - XR Chest 07/01: " Mild bilateral interstitial lung opacities presumably chronic. The lungs appear clear of acute infiltrate. The heart is borderline enlarged" Medications List: Acetaminophen (Acetaminophen 325 Mg Tablet) 650 mg PO Q6H PRN PRN Reason: TEMP > 100.4' F Hydrocodone Bitart/Acetaminophen (Hydrocodone/Apap 10/325 Tab) 1 tab PO Q6H PRN PRN Reason: Pain scale 5-7 (Moderate) Last Admin: 07/03/23 04:37 Dose: 1 tab Apixaban (Apixaban 5 Mg Tablet) 5 mg PO BID SHAHAB Last Admin: 07/03/23 09:00 Dose: Not Given Emollient Gel (Medihoney 44 Ml Topical Tube) 1 appl TOP DAILY [facility] Last Admin: 07/03/23 09:14 Dose: 1 appl Cefepime HCl 1 gm/ Sodium (Chloride) 100 mls @ 200 mls/hr IV Q8H [facility]; Protocol Last Admin: 07/03/23 03:27 Dose: 100 mls Vancomycin HCl 1.25 gm/ Sodium (Chloride) 250 mls @ 125 mls/hr IVPB Q24H [facility] Last Admin: 07/03/23 09:12 Dose: 250 mls Nutritional Formula (Ensure High Protein 237 Ml Can) 0 ml PO DAILY WITH BREAKFAST [facility] Stop: 07/08/23 08:01 Last Admin: 07/03/23 09:14 Dose: 237 ml Ondansetron HCl (Ondansetron 4 Mg/2 Ml Vial) 4 mg IV Q6HP PRN PRN Reason: NAUSEA / VOMITING Assessment and Plan Problem List Cellulitis of Left Lower Extremity History squamous cell carcinoma left lower extremity History of DVT left lower extremity x 2 (~2008) Cellulitis of Left Lower Extremity - Patient reportedly had operation on LLE for squamous cell carcinoma in March 2023, wound from procedure has been non-healing. He also reports hiking at [facility] in 2022 during which his hiking boots rubbed against the posterior foot causing a wound, which has also been non-healing since then. Patient states he has been seeing a [facility] wound care clinic since March in [place], [place]. - MRI LLE 07/01: "No MRI findings to suggest ongoing osteomyelitis. Signal abnormalities along the medial aspect of the right lower leg, may relate to a linear small component of hemorrhage or ill-defined collection. Otherwise, there is subcutaneous edema underlying the medial and lateral lower leg wounds, which may relate to cellulitis, without other suspicious findings." - Venous ultrasound 07/01: " No evidence of deep venous thrombosis involving the left lower extremity." - blood cultures 07/01: no growth to date - Wound culture 07/01: 2+ coagulase positive staph and 4+ gram negative rods - Currently on Cefepime and Vancomycin (started 07/01) - Leukocytosis resolved - Afebrile - Arterial ultrasound 07/01: "No significant abnormality is displayed" - XR Chest 07/01: " Mild bilateral interstitial lung opacities presumably chronic. The lungs appear clear of acute infiltrate. The heart is borderline enlarged" Recommendations Cellulitis: recommend continuing antibiotic therapy for a total of 14 days (07/01-07/14) - preliminary culture growing coag-positive staph and gram negative rods. Pending final culture speciation/sensitivity results. Will adjust antibiotics as appropriate. Depending on susceptibility reports, consider switch to Augmentin PO upon discharge to complete remainder of antibiotic course. - Continue wound care: rinse with vashe, pat dry, then apply medihoney and cover with foam dressing or gauze. - Nutritional supplementation - Follow up with wound care clinic as outpatient in 1-2 weeks. Plan of care discussed with patient at bedside. Case discussed with Demar Vickers
[2023-07-03] MEDS ORDERED: MEDIHONEY 44 ML TOPICAL TUBE TOP SCH (11:39)
[2023-07-03 12:33] VITALS: O2SAT 95
[2023-07-03] MEDS ORDERED: CEFEPIME 1 GM in NA CHLORIDE 0.9% 100 ML IV SCH ×2 (14:00→20:00)
--- NOTE | 2023-07-03 14:48 | P.DS ---
Admission Date: 07/01/23 Discharge Date: 07/03/23 Reason for Admission: LLE wound\redness, fatigue weakness and malaise Brief History of Present Illness: Patient is a 77-year-old male with a past medical history significant for DVT, left lower extremity wound who presents with complaint of generalized fatigue, malaise and weakness that has been ongoing for the past 3 days. 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 Patient reported that he has been having wound care sessions in [place]. Patient also reports chronic left lower extremity swelling\redness but reported that symptoms became worse in the last 4 days. Patient also reports bilateral lower extremity pain worse on the left side. Patient rated pain as 10/10 in severity and described pain as aching in quality. Patient reported that he has not been able to walk due to persistent symptoms. Patient reported associated signs and symptoms of subjective fever. Patient denies any other signs and symptoms. Symptoms are aggravated or relieved by nothing. Patient decided to present to the hospital due to worsening symptoms. Hospital Course: Patient is a 77-year-old male with a past medical history significant for DVT, left lower extremity wound who presents with complaint of generalized fatigue, malaise and weakness associated signs and symptoms of left lower extremity swelling\redness, left lower extremity pain and subjective fever. Patient was placed on antibiotics. Blood cultures and wound cultures were ordered. MRI left lower extremity did not indicate any osteomyelitis. Arterial Doppler\renal Doppler were unremarkable for any significant abnormality. Preliminary culture grew coag-positive staph and gram negative rods. Wound care orders were placed by infectious disease MD. Patient insisted on being discharged Prior to resolution of C and S. Patient was cleared for discharge by infectious disease MD. Infectious disease MD recommended Augmentin for a total of 14 days. Also infectious disease nursing staff instructed to call patient if culture and sensitivity indicates resistance to Augmentin. Case management was consulted to set up home health for wound care. Home health was set up by case management. 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 Patient verbalized understanding of discharge instructions and was discharged in stable condition. <Adam Almendarez E - Last Filed: 07/03/23 19:34> Admission Date: 07/01/23 Discharge Date: 07/03/23 Hospital Course: Pt seen and examined. I agree with the note by the GAS JOCKEY. Ok to discharge pt. Take Augmentin to complete 2 weeks of therapy. Continue wound care. <Yonas Castañeda Jessi - Last Filed: 07/03/23 22:50> Disposition: DC HOME/HOME HEALTH CARE Discharge Condition: GOOD Vital Signs/Physical Exam: Temp Pulse Resp BP Pulse Ox 98.0 F 81 18 138/63 99 07/03/23 12:00 07/03/23 12:00 07/03/23 12:08 07/03/23 12:00 07/03/23 12:08 General: Alert, In no apparent distress, Oriented x3, Cooperative HEENT: Atraumatic, PERRLA, EOMI Neck: Supple, JVD not distended Respiratory: Clear to auscultation bilaterally, Normal air movement Cardiovascular: No edema, Regular rate/rhythm, Normal S1 S2 Capillary refill: <2 Seconds Gastrointestinal: Normal bowel sounds, No tenderness Musculoskeletal: No clubbing, No tenderness, Erythema Integumentary: No rashes, Erythema Neurological: Normal speech, Normal tone, Normal affect Lymphatics: No axilla or inguinal lymphadenopathy Laboratory Data at Discharge: WBC 10.20 thou/uL (4.3-10.9) 07/03/23 06:19 Hgb 13.9 g/dL (13.6-17.9) 07/03/23 06:19 Hct 40.2 % (39.6-49.0) 07/03/23 06:19 Plt Count 245 thou/uL (152-406) 07/03/23 06:19 PT 18.3 SECONDS (9.5-12.5) H 07/01/23 09:50 INR 1.69 07/01/23 09:50 APTT 35.5 SECONDS (24.3-36.9) 07/01/23 09:50 Sodium 136 mEq/L (136-145) 07/03/23 06:19 Potassium 4.2 mEq/L (3.5-5.1) 07/03/23 06:19 BUN 18 mg/dL (7-18) 07/03/23 06:19 Creatinine 0.93 mg/dL (0.70-1.30) 07/03/23 06:19 Glucose 109 mg/dL (74-106) H 07/03/23 06:19 Phosphorus 2.3 mg/dL (2.5-4.9) L 07/01/23 17:10 Magnesium 1.9 mg/dL (1.6-2.4) 07/01/23 17:10 Total Bilirubin 0.6 mg/dL (0.2-1.0) 07/01/23 09:50 AST 10 U/L (15-37) L 07/01/23 09:50 ALT 17 U/L (16-61) 07/01/23 09:50 Alkaline Phosphatase 74 U/L (45-117) 07/01/23 09:50 Triglycerides 65 mg/dL (<150) 07/01/23 17:10 Cholesterol 145 mg/dL (<200) 07/01/23 17:10 HDL Cholesterol 68 mg/dL (40-60) H 07/01/23 17:10 Cholesterol/HDL Ratio 2.13 07/01/23 17:10 <Adam Almendarez E - Last Filed: 07/03/23 19:34> Vital Signs/Physical Exam: Temp Pulse Resp BP Pulse Ox 97.3 F 66 18 131/68 98 07/03/23 16:00 07/03/23 16:00 07/03/23 16:00 07/03/23 16:00 07/03/23 16:00 Laboratory Data at Discharge: WBC 10.20 thou/uL (4.3-10.9) 07/03/23 06:19 Hgb 13.9 g/dL (13.6-17.9) 07/03/23 06:19 Hct 40.2 % (39.6-49.0) 07/03/23 06:19 Plt Count 245 thou/uL (152-406) 07/03/23 06:19 PT 18.3 SECONDS (9.5-12.5) H 07/01/23 09:50 INR 1.69 07/01/23 09:50 APTT 35.5 SECONDS (24.3-36.9) 07/01/23 09:50 Sodium 136 mEq/L (136-145) 07/03/23 06:19 Potassium 4.2 mEq/L (3.5-5.1) 07/03/23 06:19 BUN 18 mg/dL (7-18) 07/03/23 06:19 Creatinine 0.93 mg/dL (0.70-1.30) 07/03/23 06:19 Glucose 109 mg/dL (74-106) H 07/03/23 06:19 Phosphorus 2.3 mg/dL (2.5-4.9) L 07/01/23 17:10 Magnesium 1.9 mg/dL (1.6-2.4) 07/01/23 17:10 Total Bilirubin 0.6 mg/dL (0.2-1.0) 07/01/23 09:50 AST 10 U/L (15-37) L 07/01/23 09:50 ALT 17 U/L (16-61) 07/01/23 09:50 Alkaline Phosphatase 74 U/L (45-117) 07/01/23 09:50 Triglycerides 65 mg/dL (<150) 07/01/23 17:10 Cholesterol 145 mg/dL (<200) 07/01/23 17:10 HDL Cholesterol 68 mg/dL (40-60) H 07/01/23 17:10 Cholesterol/HDL Ratio 2.13 07/01/23 17:10 <Yonas Castañeda - Last Filed: 07/03/23 22:50> Diet: AHA Activity: Ad walter Physician Review: Patient Assessed, Agree with Above Assessment and Plan <Adam Almendarez E - Last Filed: 07/03/23 19:34> <Yonas Castañeda - Last Filed: 07/03/23 22:50> Home Medications: Acetaminophen [Tylenol Extra Strength] 500 mg PO Q6HP PRN 07/01/23 Apixaban [Eliquis] 5 mg PO BID 07/01/23 Hypochlorous Acid/Sodium Chlor [Avenova Lid-Lash [place]] 1 spray EACH EYE BID 07/01/23 Levothyroxine [Synthroid*] 0.088 mcg PO [id number] 07/01/23 Lmefolate/B3/Wander/Zn/Zoë/Chrom [Nicotinamide Tablet] 500 mcg PO DAILY 07/01/23 Triamcinolone Acetonide 1 appl TD BID 07/01/23 Vitamin B Complex [Vitamin B Complex*] 1 cap PO DAILY 07/01/23 Amox/Clavulanate [Augmentin 875-125 Tab] 1 tab PO Q8H 14 Days #42 tab 07/03/23 Ensure High Protein 237 ml PO DAILY WITH BREAKFAST #15 can 07/03/23 Hydrocodone 10/APAP 325 [[place] 10/325*] 1 tab PO Q8H PRN #15 tab 07/03/23 Medihoney [Medihoney Woundcare Gel*] 1 appl TOP DAILY #1 tube 07/03/23 New Medications: Amox/Clavulanate [Augmentin 875-125 Tab] 1 tab PO Q8H 14 Days #42 tab Ensure High Protein 237 ml PO DAILY WITH BREAKFAST #15 can Medihoney [Medihoney Woundcare Gel*] 1 appl TOP DAILY #1 tube Hydrocodone 10/APAP 325 [Ray[place] 10/325*] 1 tab PO Q8H PRN #15 tab PRN Reason: Pain Scale 5-7 (Moderate) Physician Discharge Instructions: [facility] P:[phone] F:[phone] Followup: Unknown,U [Primary Care Provider] - Mohan Pederson MD [ACTIVE - CAN ADMIT] -
[2023-07-03 16:50] VITALS: BP 131/68; TEMP 97.3
--- NOTE | 2023-07-04 13:40 | EKG ---
Test Date: 2023-07-01 Test Time: 07:43:40 Fruit Receiver: DERIC MEASUREMENT RESULTS: Intervals: Rate: 92 CA: 134 QRSD: 76 QT: 312 QTc: 385 Pinon: P: 44 CA: 134 QRS: -22 T: 6 INTERPRETIVE STATEMENTS: Normal sinus rhythm Nonspecific ST and T wave abnormality Abnormal ECG No previous ECG available for comparison Electronically Signed On 07-04-23 13:26:22 EXPERIMENTAL WELDER by Kvng Sorto
== END 2023-07-03 17:26 | disposition home health service (06) ==
LOC: ER 06:11 → ERHOLD 12:15 → 2ND 16:59
PROVIDERS: ADMIT Hospitalist; ATTEND Hospitalist
DX: L03.116 Cellulitis of left lower limb (principal); B96.20 Unspecified Escherichia coli [E. coli] as the cause of diseases classified elsewhere; N18.2 Chronic kidney disease, stage 2 (mild); D72.829 Elevated white blood cell count, unspecified; R53.1 Weakness; T81.89XA Other complications of procedures, not elsewhere classified, initial encounter; S81.802A Unspecified open wound, left lower leg, initial encounter; Z86.718 Personal history of other venous thrombosis and embolism; Z79.01 Long term (current) use of anticoagulants; Z85.828 Personal history of other malignant neoplasm of skin
CPT/HCPCS: 93005; 93306; 87040 ×2; 87070 ×2; 85025 ×3; 81001; 80048 ×2; 36415 ×2; 83735; 87205 ×2; 84100; 85610; 80061; 83605; 85730; 84443; 83036; 84439; 80053; 83880; 87804 ×2; 71045; 93926; 93971; 73718; 97110; 97116 ×2; 97161; 97530; 87811; J0692 ×7; G0378 ×6; J7050 ×3; J7030